=== PATIENT | female | born 1960 | race Caucasian/White ===

== ENCOUNTER 2019-05-11 06:05 | Day surgery (SDC) | payer BC, SELFPAY ==
[2019-05-11 06:52] VITALS: BP 128/86; PULSE 84; RESP 16; TEMP 36.2; O2SAT 96; BMI 26.4
[2019-05-11] MEDS: Lactated Ringers 1,000 ML 100 ML IV (07:22)
[2019-05-11] MEDS: Cefazolin 2 GM in 0.9% Normal Saline 100 ML IV (07:40)
--- NOTE | 2019-05-11 07:46 | DCINST_ITS ---
Discharge Diet: No Restrictions Discharge Activity: May not drive while taking narcotic pain medications., May Shower Call your doctor if you observe: Fever of 101 or Higher, Inability to urinate, Shortness of breath, Chest pain, Calf discomfort, Uncontrolled pain Additional Instructions: remove stent tomorrow morning. Allergies/Adverse Reactions: Allergies Sulfa (Sulfonamide Antibiotics) Allergy (Verified 05/11/19 06:48) Hives adhesive tape Adverse Reaction (Verified 05/11/19 06:48) Other skin turns red Medications to take at Discharge Acetaminophen/Codeine #3 [Tylenol #3 Tablet] 2 tab PO Q6H PRN PRN 05/07/19 Ergocalciferol (Vitamin D2) [Vitamin D2] 50,000 unit PO Q7D 05/07/19 Gabapentin 600 mg PO QHS 05/07/19 Gabapentin [Neurontin] 300 mg PO BIDCM 05/07/19 Metoprolol(XL)Succ [Toprol Xl (Beta Korina)] 25 mg PO QHS 05/07/19 Omeprazole 20 mg PO PRN PRN 05/07/19 Ondansetron [Zofran] 8 mg PO Q8H PRN PRN 05/07/19 Phenazopyridine HCl [Pyridium] 200 mg PO TID PRN 05/07/19 Venlafaxine XR [Effexor Xr] 150 mg PO QHS 05/07/19 Cephalexin [Keflex] 500 mg PO Q12 3 Days #6 cap 05/11/19 Phenazopyridine HCl [Pyridium] 200 mg PO TID PRN PRN 7 Days #30 tab 05/11/19 The following prescriptions were given: Cephalexin [Keflex] 500 mg PO Q12 3 Days #6 cap Prescription Printed Phenazopyridine HCl [Pyridium] 200 mg PO TID PRN PRN 7 Days #30 tab PRN Reason: Bladder Spasms Prescription Printed Primary Care Physician: Haydee Bae [Primary Care Provider] - Test Results: Test results from this visit will be discussed in further detail at your follow- up appointment, if applicable. Please Follow Up With: Marilia Bonilla MD When: call office for appt Proposed Discharge Date: 05/11/19
--- NOTE | 2019-05-11 07:47 | PCM.OPRPT ---
Problem List (1) Left ureteral calculus Status: Acute Report of Operation Date of Procedure: 05/11/19 Pre-Operative Diagnosis: left ureteral calculus Post-Operative Diagnosis: same Surgery/Procedure Performed:: cystoscopy, left ureteroscopy, left ureteral stent change Description of Surgical Findings:: No stone identified on ureteroscopy up to the renal pelvis with a semirigid ureteroscope. Stent was changed and string left. Type of Anesthesia:: General Description of Procedure: The patient is a 59-year-old female who began passing a left ureteral calculus. She was seen by a physician in an outlying institution and a ureteral stent was placed. She desired intervention and we discussed the risk benefits and alternatives. Informed consent was obtained. Patient was taken to the operating room and placed in the operating room table anesthesia monitored the head, neck, airway and vital signs throughout the case. Once anesthesia was appropriately administered the patient was placed into dorsal lithotomy position and was prepped and draped in usual sterile fashion. At this time a cystourethroscopy was performed in the left ureteral stent was observed and removed without difficulty. A 0.035 Glidewire was passed to the renal pelvis prior to removal of the stent. At this time a ureteroscopy was performed with a semirigid scope. Using fluoroscopic visualization a retrograde pyelogram was performed through the scope and the stone was not identified. The scope was performed all the way to the renal pelvis and no stone was seen. The scope was removed under direct visualization. Using the indwelling 0.035 Glidewire, a 6 Syriac 24 cm double-J stent was inserted without difficulty. The string was left attached with an OpSite to the patient's left inner thigh. She was awakened and taken to the recovery room in good condition. There were no complications during the procedure. - Complications None - Admit VTE Documentation VTE Present on Admission: Yes VTE Mechan Device Prophylaxis: SCD's VTE Pharm Prophylaxis ordered?: No Reason prophylaxis not ordered:: Treatment Not Indicated
[2019-05-11] MEDS: Lubricating Jelly 60 GM Tube 30 GM TOPICAL (07:55)
[2019-05-11 08:19] VITALS: BP 128/86; BP 130/88; PULSE 84; RESP 16; TEMP 36.4; O2SAT 96
[2019-05-11 08:30] VITALS: BP 124/84; BP 128/86; PULSE 85; RESP 16; O2SAT 95
[2019-05-11 08:45] VITALS: BP 127/88; BP 128/86; PULSE 82; RESP 16; TEMP 36.3; O2SAT 96
[2019-05-11 09:39] VITALS: BP 128/86; BP 133/85; PULSE 85; RESP 16; TEMP 36.8; O2SAT 97
== END 2019-05-11 09:40 | disposition home or self-care (01) ==
LOC: SDC 06:10 → AC 06:11
PROVIDERS: Family Provider Internal Medicine; PCP Internal Medicine; Referring Provider Urology; Visit Provider Urology
PROC: 0TJ98ZZ Inspection of Ureter, Via Natural or Artificial Opening Endoscopic (ICD-10-PCS; CPT 52352; principal; 2019-05-11 07:20)
DX: N20.1 Calculus of ureter (principal); I10 Essential (primary) hypertension; F32.9 Major depressive disorder, single episode, unspecified; F41.9 Anxiety disorder, unspecified; F12.90 Cannabis use, unspecified, uncomplicated; Z79.899 Other long term (current) drug therapy; Z87.891 Personal history of nicotine dependence
CPT/HCPCS: 00910; 52332; 76000; J7120; C2617; J2405